=== PATIENT | female | born 1980 | race American Indian/Alaskan Native ===

== ENCOUNTER 2017-08-17 08:58 | Outpatient (CLI) | payer MEDICAID ==
[2017-08-17] MEDS ORDERED: LACTATED RINGERS 500 ML IV ONE (09:10)
[2017-08-17 09:18] VITALS: BP 102/68
[2017-08-17] MEDS ORDERED: NITRATEST PAPER MC ONE (09:44)
[2017-08-17 10:34] LABS: Bilirubin,Urine NEG (Negative); Blood,Urine NEG (Negative); Color,Urine Yellow (Yellow); Mucus,Urine FEW /HPF; Protein,Urine <15 mg/dL mg/dL (Negative); Urobilinogen,Urine < 2.0 mg/dL (<2.0)
[2017-08-17] MEDS ORDERED: XYLOCAINE 1% MPF 5 mL INFILTRATI ONE (11:16)
[2017-08-17] MEDS ORDERED: ROCEPHIN IM SCH (11:30)
--- NOTE | 2017-08-21 09:31 | Ultrasound Report ---
OB ULTRASOUND LIMITED: 08/17/17 CLINICAL: Check well-being. FINDINGS: Gestation: Mast Position: Cephalic. Amniotic Fluid: Normal LICHA = 14.7 cm Heart Rate: 157 BPM Cervical length: cm IMPRESSION: Single live intrauterine fetus at 29 weeks 0 days based on clinical dating. EDC based on clinical dating is 11/02/17.
== END 2017-08-17 12:32 | disposition home or self-care (01) ==
LOC: TRG 08:58
PROVIDERS: ATTEND Obstetrics & Gynecology
DX: O47.03 False labor before 37 completed weeks of gestation, third trimester (principal); Z3A.29 29 weeks gestation of pregnancy
CPT/HCPCS: 59025; 76815; 81001; 96372; J0696

== ENCOUNTER 2017-11-07 10:58 | Outpatient (CLI) | payer MEDICAID ==
[2017-11-07] MEDS ORDERED: LACTATED RINGERS 1,000 ML IV ONE (13:00)
[2017-11-07 13:57] VITALS: BP 125/63
[2017-11-07] MEDS ORDERED: PITOCin/NS 30 UNIT/500ML 30 UNITS/500 ML BAG IV SCH ×2 (14:00)
[2017-11-07] MEDS ORDERED: PITOCin/NS 20 UNIT/1000ML DRIP 20 UNITS/1,000 ML BAG IV SCH (14:00)
[2017-11-07] MEDS ORDERED: BRETHINE SUB-Q PRN (14:00)
[2017-11-07] MEDS ORDERED: ePHEDrine SULFATE IV PRN (14:00)
[2017-11-07] MEDS ORDERED: BRETHINE IVP PRN (14:00)
[2017-11-07] MEDS ORDERED: LACTATED RINGERS 1,000 ML IV SCH (14:00)
[2017-11-07] MEDS ORDERED: MINERAL OIL PO PRN (14:00)
[2017-11-07] MEDS ORDERED: XYLOCAINE 2% INFILTRATI ONE (14:00)
--- NOTE | 2017-11-07 14:52 | Ultrasound Report ---
FINAL REPORT PROCEDURE: US OB LIMITED TECHNIQUE: Real-time limited sonographic examination was performed for evaluation of fluid volume for each fetus with image documentation (1 or more fetuses). CPT 22158 HISTORY: Check amniotic fluid index COMPARISON: No prior studies are available for comparison. FINDINGS: FETUS IUP: Single living intrauterine . Position: Cephalic. Amniotic fluid volume: Amniotic fluid index measures 4.5 centimeters Heart rate and rhythm: 143 BPM, Regular . IMPRESSION: Amniotic fluid index measures 4.5 centimeters, which is decreased/compatible with oligohydramnios. Correlate clinically to exclude rupture of membranes.
--- NOTE | 2017-11-08 07:45 | Ultrasound Report ---
ULTRASOUND BIOPHYSICAL PROFILE: History: well being Technique: Transabdominal ultrasound with Doppler interrogation. 2 - breathing movements 2 - movements 2 - posture and tone 2 - Qualitative amniotic fluid volume 8 - TOTAL SCORE OF POSSIBLE 8 Heart Rate (bpm) 161
== END 2017-11-07 16:10 | disposition left against medical advice (07) ==
LOC: TRG 10:58
PROVIDERS: ATTEND Obstetrics & Gynecology
DX: O47.1 False labor at or after 37 completed weeks of gestation (principal); Z3A.40 40 weeks gestation of pregnancy
CPT/HCPCS: 76815; 76819; J7120